=== PATIENT | male | born 1980 | race Caucasian/White ===

== ENCOUNTER 2016-12-10 19:08 | Emergency (ER) | payer SELFPAY ==
[2016-12-10 22:22] VITALS: BP 119/71
== END 2016-12-10 22:24 | disposition other institution (70) ==
LOC: ED 19:08
DX: Z02.89 Encounter for other administrative examinations (principal); F11.23 Opioid dependence with withdrawal
CPT/HCPCS: J2060; J2405

== ENCOUNTER 2016-12-10 19:08 | Emergency (ER) | payer OTHER | END 2016-12-10 22:24 | disposition other institution (70) | LOC: ED 19:08 | DX: F11.23 Opioid dependence with withdrawal (principal) ==